=== PATIENT | female | born 1965 | race Two or more races ===

== ENCOUNTER 2025-05-08 07:26 | Inpatient (IN) | payer BC, OTHER ==
[~2025-05-08] VITALS: Ht 162.6 cm; Wt 87.7 kg
--- NOTE | 2025-05-08 07:45 | ED.PDOC ---
General HPI Comments This is a 59 year old female presenting to the ED with chief complaint of left flank pain. Patient reports that she has been experiencing intermittent left sided flank pain with associated radiation to her LLQ and hematuria for the past 2 weeks. Patient relays that she was seen at [facility] for the same complaint a week ago, having an US performed with results showing multiple stones to her left kidney, biggest being 5mm. Patient denies any dysuria, fever, chills, abdominal pain, chest pain, or SOB. She has no other complaints. Denies any other palliative provocative factors. Denies modifying factors. Denies radiation of symptoms. 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 MOLDING ENGINEER Hx Family History Family History: Reviewed,noncontributory to illness Social History Smoker: Non-Smoker Alcohol: Denies ETOH Use Drugs: Denies Drug Use Lives In: Home Constitutional: denies: chills, diaphoresis, fatigue, fever, malaise, sweats, weakness, others EENTM: denies: blurred vision, double vision, ear bleeding, ear discharge, ear drainage, ear pain, ear ringing, eye pain, eye redness, hearing loss, mouth pain, mouth swelling, nasal discharge, nose bleeding, nose congestion, nose pain, photophobia, tearing, throat pain, throat swelling, voice changes, others Respiratory: denies: cough, hemoptysis, orthopnea, SOB at rest, shortness of breath, SOB with excertion, stridor, wheezing, others Cardiovascular: denies: chest pain, dizzy spells, diaphoresis, Dyspnea on exertion, edema, irregular heart beat, left arm pain, lightheadedness, palpitations, PND, syncope, others Gastrointestinal: denies: abdomen distended, abdominal pain, blood streaked bowels, constipated, diarrhea, dysphagia, difficulty swallowing, hematemesis, melena, nausea, poor appetite, poor fluid intake, rectal bleeding, rectal pain, vomiting, others Genitourinary: reports: flank pain, hematuria; denies: abnormal vagina bleeding, burning, dyspareunia, dysuria, frequency, incontinence, pain, , vagina discharge, urgency, others Neurological: denies: dizziness, fainting, headache, left sided numbness, left sided weakness, numbness, paresthesia, pre-existing deficit, right sided numbness, right sided weakness, seizure, speech problems, tingling, tremors, weakness, others Musculoskeletal: denies: back pain, gout, joint pain, joint swelling, muscle pain, muscle stiffness, neck pain, others Integumetry: denies: bruises, change in color, change in hair/nails, dryness, laceration, lesions, lumps, rash, wounds, others Allergic/Immunocompromised: denies: Difficulty Healing, Frequent Infections, Hives, Itching, others Hematologic/Lymphatic: denies: anemia, blood clots, easy bleeding, easy bruising, swollen glands, others Endocrine: denies: excessive hunger, excessive sweating, excessive thirst, excessive urination, flushing, intolerance to cold, intolerance to heat, unexplained weight gain, unexplained weight loss, others Psychiatric: denies: anxiety, bipolar disorder, depression, hopeless, panic disorder, schizophrenia, sleepless, suicidal, others All Other Systems: Reviewed and Negative Physical Exam General Appearance: No Apparent Distress, Normal HEENT: Normal ENT Inspection, Pharynx Normal, TMs Normal Neck: Full Range of Motion, Normal Inspection Respiratory: Lungs Clear, No Accessory Muscle Use, No Respiratory Distress, Normal Breath Sounds Cardiovascular: No Murmur, No Gallop, Normal Peripheral Pulses, Regular Rate/Rhythm Breast Exam: Deferred Gastrointestinal: No Organomegaly, Normal Bowel Sounds, Soft, Other (Minimal left CVA tenderness with percussion) Genitalia: Deferred Pelvic: Deferred Rectal: Deferred Extremities: Normal inspection, Normal range of motion, Non-tender, No pedal edema Musculoskeletal : Apperance: Normal Neurologic: Alert, model maker scale II-XII nml as Tested, No Motor Deficits, Normal Affect, Normal Mood, No Sensory Deficits Cerebellar Function: NOT DONE Reflexes: NOT DONE Skin: Dry, Normal Color, Warm Lymphatic: No Adenopathy Was a procedure done? Was a procedure done?: No Differential Diagnosis Kidney stone (Female): Musculoskeletal pain, Pyelonephritis, Urolithiasis Urinary Problem (Female): UTI X-Ray, Labs, Meds, VS Vital Signs Date Time Temp Pulse Resp B/P (MAP) Pulse Ox O2 Delivery O2 Flow Rate FiO2 05/08/25 07:35 98.7 107 20 137/73 (94) 100 98.7 Lab Test 05/08/25 08:13 05/08/25 07:37 Range/Units White Blood Count Pending Red Blood Count Pending Hemoglobin Pending Hematocrit Pending Mean Corpuscular Volume Pending Mean Corpuscular Hemoglobin Pending Mean Corpuscular Hemoglobin Concent Pending Red Cell Distribution Width Pending Platelet Count Pending Mean Platelet Volume Pending Neutrophils (%) (Auto) Pending Lymphocytes (%) (Auto) Pending Monocytes (%) (Auto) Pending Basophils (%) (Auto) Pending Neutrophils # (Auto) Pending Lymphocytes # (Auto) Pending Monocytes # (Auto) Pending Sodium Level Pending Potassium Level Pending Chloride Level Pending Carbon Dioxide Level Pending Anion Gap Pending Blood Urea Nitrogen Pending Creatinine Pending Glomerular Filtration Rate Calc Pending BUN/Creatinine Ratio Pending Serum Glucose Pending Calcium Level Pending Total Bilirubin Pending Aspartate Amino Transferase (AST) Pending Alanine Aminotransferase (ALT) Pending Alkaline Phosphatase Pending Total Protein Pending Albumin Pending Urine Color Pending Urine Clarity Pending Urine pH Pending Urine Specific [place] Pending Urine Protein Pending Urine Ketones Pending Urine Blood Pending Urine Nitrite Pending Urine Bilirubin Pending Urine Urobilinogen Pending Urine Leukocyte Esterase Pending Urine RBC Pending Urine Microscopic WBC Pending Urine Squamous Epithelial Cells Pending Urine Bacteria Pending Urine Glucose Pending [place] [id number] Ph: [phone] DIAGNOSTIC IMAGING Diagnostic Imaging Report : [id number] Signed PATIENT: QUENTIN RENE ACCT: [id number] UNIT: [id number] : 1965 LOC: ER ROOM / BED: / AGE / SEX: 59 / F ADM STATUS: REG ER SERVICE [id number] ORDERING PHYSICIAN: KAREN SALGADO MD PROCEDURE(s): ABPL - CT AB PEL WO CON-NO ORAL OR IV REASON: LEFT flank pain, hx of stones ORDER NUMBER(s): [id number], ACCESSION NUMBER(s): [id number] Exam: CT CT AB PEL WO CON-NO ORAL OR IV History: LEFT flank pain, hx of stones Comparison Study: None Technique: Multidetector spiral CT of the abdomen and pelvis was performed from lung bases to pubic symphysis. Imaging was performed without intravenous contrast. Coronal and sagittal multiplanar reformats were obtained from the axial data set by the technologist. Radiation Dose : 1. Abdomen/Pelvis: CTDIvol 17.7 mGy, DLP 45.6 mGy*cm. Findings: Evaluation of vasculature and solid organs is limited due to lack of intravenous contrast use. Lung Bases: Lung bases are clear. Visualized portions of the heart and pericardium are unremarkable. Liver: The liver is enlarged measuring 21.2 cm. Diffusely hypoattenuating liver parenchyma consistent with hepatic steatosis. Gallbladder and Biliary Tree: The gallbladder is surgically absent. No intrahepatic biliary ductal dilatation. 5 mm density in the region of the cystic duct may reflect calcification or stone. Common bile duct is mildly prominent measuring 8 mm. Spleen: Unremarkable Pancreas: The pancreas is grossly unremarkable. Adrenal Glands: Unremarkable Kidneys: There is mild left hydroureteronephrosis due to 8 mm calculus in the proximal left ureter. Additional nonobstructive calculus in the lower pole of the left kidney measuring 5 mm. Left perinephric fat stranding. GI tract: The stomach is grossly normal in appearance. No evidence of small bowel wall thickening or abnormal dilatation to suggest bowel obstruction. The colon is unremarkable. The appendix is not visualized, however no inflammatory changes in the right lower quadrant to suggest acute appendicitis. Peritoneum/mesentery/retroperitoneum. No evidence of free intraperitoneal air. No ascites. No evidence of suspicious lymphadenopathy. Abdominal Wall: Unremarkable. Vasculature: The visualized abdominal aorta is normal in size and caliber. Evaluation of abdominal and pelvic vessels is limited due to lack of intravenous contrast. Urinary Bladder: Grossly unremarkable for degree of distention. Pelvic Organs: Unremarkable Musculoskeletal: No aggressive focal bony lesions, acute fractures or dislocation. Intervertebral disc space narrowing at L5-S1. IMPRESSION: 1. Left hydronephrosis with 8 mm calculus in the proximal left ureter. Additional nonobstructive left intrarenal calculus. 2. Hepatic steatosis and hepatomegaly. ATED BY: JUSTINE OLIVA MD DICTATED DATE/TIME: 05/08/25810 SIGNED BY: JUSTINE OLIVA MD SIGNED DATE/TIME: 05/08/25810 CC: X-Ray, Labs, Meds, VS Comment This 59-year-old female presents secondary to left flank pain. She is noted to have a 8 mm obstructing kidney stone with hydronephrosis. She endorses currently being on Flomax now she had prescribed at [facility]. Here, she had provided IV hydration and an additional dose of Flomax. As she is on medical treatment continues to have an obstructing stone, she will be admitted for further workup management by the hospitalist service and Urology. Images Reviewed?: Images reviewed and evaluated by me Time of 1ST Reevaluation: 08:41 Reevaluation 1ST: Unchanged Patient Education/Counseling: Diagnosis, Treatment Family Education/Counseling: No Family Present SEPSIS Sepsis Screen Date sepsis recognized/suspect: May 08, 2025 Time Sepsis recognized/suspect: 07 Recent Procedure: No On Antibiotic Therapy: No Respiratory Rate >20: No Heart Rate >90: Yes Temp<36 C (96.8 F) or >38.3 C: No SBP <90 or MAP <65 mmHG: No New Acute Mental Status Change: No Is the patient on CPAP, BIPAP,: No Physician Orders Complete Blood Count (05/08/25 07:37) Comprehensive Metabolic Panel (05/08/25 07:37) Urinalysis (05/08/25 07:37) Ct Ab Pel Wo Con-No Oral Or Iv (05/08/25 07:37) D5w/Sod Chlo 0.9% Ns (05/08/25 08:30) Vital Signs Date Time Temp Pulse Resp B/P (MAP) Pulse Ox O2 Delivery O2 Flow Rate FiO2 05/08/25 07:35 98.7 107 20 137/73 (94) 100 98.7 Laboratory Tests Test 05/08/25 08:13 White Blood Count Pending Departure 1 Departure Time of Disposition: 08:26 Impression: Primary Impression: Flank pain Additional Impression: Urinary tract obstruction by kidney stone Disposition: ADMITTED INPATIENT Admit to: Med Surg Condition: Fair Critical Care Note Critical Care Time?: No Stability Stability form required: No Heart Score Heart Score: Heart Score Response (Comments) Value History N/A 0 EKG N/A 0 Age N/A 0 Risk Factors N/A 0 Troponin N/A 0 Total 0 I personally scribed for KAREN SALGADO MD ([email or web address]) on 05/08/25 at 07:45. Electronically submitted by Sung Chiang ([email or web address]). I personally scribed for KAREN SALGADO MD ([email or web address]) on 05/08/25 at 08:23. Electronically submitted by Sung Chiang ([email or web address]). KAREN SALGADO MD May 08, 2025 07:45
--- NOTE | 2025-05-08 08:13 | DVH ---
Exam: CT CT AB PEL WO CON-NO ORAL OR IV History: LEFT flank pain, hx of stones Comparison Study: None Technique: Multidetector spiral CT of the abdomen and pelvis was performed from lung bases to pubic s ymphysis. Imaging was performed without intravenous contrast. Coronal and sagittal multiplanar reform ats were obtained from the axial data set by the technologist. Radiation Dose : 1. Abdomen/Pelvis: CTDIvol 17.7 mGy, DLP 45.6 mGy*cm. Findings: Evaluation of vasculature and solid organs is limited due to lack of intravenous contrast use. Lung Bases: Lung bases are clear. Visualized portions of the heart and pericardium are unremarkable. Liver: The liver is enlarged measuring 21.2 cm. Diffusely hypoattenuating liver parenchyma consisten t with hepatic steatosis. Gallbladder and Biliary Tree: The gallbladder is surgically absent. No intrahepatic biliary ductal di latation. 5 mm density in the region of the cystic duct may reflect calcification or stone. Common b ile duct is mildly prominent measuring 8 mm. Spleen: Unremarkable Pancreas: The pancreas is grossly unremarkable. Adrenal Glands: Unremarkable Kidneys: There is mild left hydroureteronephrosis due to 8 mm calculus in the proximal left ureter. A dditional nonobstructive calculus in the lower pole of the left kidney measuring 5 mm. Left perinephr ic fat stranding. GI tract: The stomach is grossly normal in appearance. No evidence of small bowel wall thickening or abnormal dilatation to suggest bowel obstruction. The colon is unremarkable. The appendix is not visu alized, however no inflammatory changes in the right lower quadrant to suggest acute appendicitis. Peritoneum/mesentery/retroperitoneum. No evidence of free intraperitoneal air. No ascites. No evidenc e of suspicious lymphadenopathy. Abdominal Wall: Unremarkable. Vasculature: The visualized abdominal aorta is normal in size and caliber. Evaluation of abdominal a nd pelvic vessels is limited due to lack of intravenous contrast. Urinary Bladder: Grossly unremarkable for degree of distention. Pelvic Organs: Unremarkable Musculoskeletal: No aggressive focal bony lesions, acute fractures or dislocation. Intervertebral dis c space narrowing at L5-S1. IMPRESSION: 1. Left hydronephrosis with 8 mm calculus in the proximal left ureter. Additional nonobstructive lef t intrarenal calculus. 2. Hepatic steatosis and hepatomegaly.
[2025-05-08 08:36] LABS: Hematocrit 40.6 % (36.0-46.0); Hemoglobin 14.1 g/dL (12.2-16.2); Mean Corpuscular Hemoglobin 30.1 pg (28.0-32.0); Mean Corpuscular Volume 86.9 fL (80.0-100.0); Nucleated Red Blood Cells % 0.1 %
[2025-05-08 08:39] LABS: Urine Protein, UAD TRACE (Negative)
[2025-05-08] MEDS: D5W/SOD CHLO 0.9% 1,000 ML IV ONE (08:46)
[2025-05-08] MEDS: SODIUM CHLORIDE 0.9% 1,000 ML IV ONE (08:54)
[2025-05-08 08:56] VITALS: PULSE 84; RESP 16; O2SAT 96
[2025-05-08 09:01] LABS: Alanine Aminotransferase 14 U/L (7-40); Albumin 4.3 g/dL (3.2-4.8); Alkaline Phosphatase 76 U/L (46-116); Anion Gap 9 (5-15); BUN/Creatinine Ratio 11.1 (10.0-20.0); Bilirubin, Total 0.8 mg/dL (0.2-1.0); Blood Urea Nitrogen 17 mg/dL (9-23); Calcium 9.8 mg/dL (8.7-10.4); Carbon Dioxide 24 mmol/L (20-31); Chloride 102 mmol/L (98-107); Glucose 129 mg/dL (74-106); Potassium 3.9 mmol/L (3.5-5.1); Sodium 135 mmol/L (136-145); Total Protein 7.4 g/dL (5.7-8.2)
[2025-05-08] MEDS ORDERED: ACETAMINOPHEN 325 MG TAB PO PRN (10:00)
[2025-05-08] MEDS ORDERED: PREG50CA80 PO (10:27)
[2025-05-08] MEDS ORDERED: ROPI2TAB47 PO (10:27)
[2025-05-08] MEDS ORDERED: PANT40T PO (10:27)
[2025-05-08] MEDS ORDERED: TAMS0.4C39 PO (10:27)
[2025-05-08] MEDS ORDERED: ATOR40TA52 PO (10:27)
[2025-05-08] MEDS ORDERED: LEVO100T8 PO (10:27)
--- NOTE | 2025-05-08 10:40 | DVHHP2 ---
History of Present Illness Reason for Visit: Left flank pain History of Present Illness Jazmin Ulloa is a 59-year-old female with past medical history of nephrolithiasis, cholecystectomy, and hysterectomy who presents to the ED with left flank pain that began 2 weeks ago with hematuria. Patient reports that there is currently no hematuria upon examination. She does state that her pain is 10/10 feels like "pain" and is constant. Patient states that [place] makes it better sometimes. She denies any recent trauma or injury, recent sick contacts, recent travels, recent ingestion of spoiled food, abdominal pain, nausea, vomiting, diarrhea, urinary symptoms, chest pain, shortness of breath, lightheadedness, weakness, or dizziness. Past Medical History Nephrolithiasis Past Surgical History: Cholecystectomy, Hysterectomy Family History: Cancer, Other (Dad with kidney stones and rheumatoid arthritis. Mom with heart stents, AFib, and breast cancer.) Smoke: No ALCOHOL: none Drugs: None Lives: with Family Domestic Violence: Neg Review of Systems Musculoskeletal: other (Left flank pain) Allergies: Uncoded Allergies: SULFA (Allergy, Unknown, 05/08/25) Medications Current Medications Medications Dose Ordered Sig/Yolanda Route Start Time Stop Time Status Last Admin Dose Admin Ceftriaxone Sodium 50 ml @ 100 mls/hr DAILY@09 IV 05/08/25 10:00 Sodium Chloride 1,000 ml @ 120 mls/hr Q8H20M IV 05/08/25 10:00 Acetaminophen/ Hydrocodone Bitart 1 tab Q4HP PRN PO 05/08/25 10:00 Ondansetron HCl 4 mg Q4HP PRN IV 05/08/25 10:00 Acetaminophen 650 mg Q6HP PRN PO 05/08/25 10:00 Morphine Sulfate 2 mg Q4HPRN PRN IV 05/08/25 10:00 Exam Vital Signs Vital Signs Date Time Temp Pulse Resp B/P (MAP) Pulse Ox O2 Delivery O2 Flow Rate FiO2 05/08/25 10:00 Room Air* 0 21 05/08/25 08:56 84 16 96 05/08/25 07:35 98.7 137/73 (94) 98.7 General Appearance: Alert, Oriented X3, Cooperative, No acute distress HEENT: Atraumatic, PERRLA, EOMI, Mucous membr. moist/pink Respiratory: Clear to auscultation, Normal air movement Cardiovascular: Normal S1, Normal S2, No murmurs Abdominal: Normal bowel sounds, Soft, No tenderness, No hepatospenomegaly, No masses Extremities: No clubbing, No cyanosis, No edema, Normal pulses, No tenderness/swelling Skin: No significant lesion Neuro: Normal gait, Normal speech, Strength at 5/5 X4 ext, Normal tone, Sensation intact Psych/Mental Status: Mental status NL, Mood NL Labs/Xrays Labs Test 05/08/25 08:13 05/08/25 07:37 Range/Units White Blood Count 11.8 H 4.4-10.8 10^3/uL Red Blood Count 4.68 4.0-5.20 10^6/uL Hemoglobin 14.1 12.2-16.2 g/dL Hematocrit 40.6 36.0-46.0 % Mean Corpuscular Volume 86.9 80.0-100.0 fL Mean Corpuscular Hemoglobin 30.1 28.0-32.0 pg Mean Corpuscular Hemoglobin Concent 34.6 32.0-36.0 g/dL Red Cell Distribution Width 13.6 11.8-14.3 % Platelet Count 192 140-450 10^3/uL Mean Platelet Volume 7.9 6.9-10.8 fL Neutrophils (%) (Auto) 75.6 37.0-80.0 % Lymphocytes (%) (Auto) 12.8 10.0-50.0 % Monocytes (%) (Auto) 9.9 0.0-12.0 % Eosinophils (%) (Auto) 0.9 0.0-7.0 % Basophils (%) (Auto) 0.8 0.0-2.0 % Neutrophils # (Auto) 8.9 H 1.6-8.6 10 ^3/uL Lymphocytes # (Auto) 1.5 0.4-5.4 10 ^3/uL Monocytes # (Auto) 1.2 0-1.3 10 ^3/uL Eosinophils # (Auto) 0.1 0-0.8 10 ^3/uL Basophils # (Auto) 0.1 0-0.2 10 ^3/uL Nucleated Red Blood Cells 0.1 % Sodium Level 135 L 136-145 mmol/L Potassium Level 3.9 3.5-5.1 mmol/L Chloride Level 102 98-107 mmol/L Carbon Dioxide Level 24 20-31 mmol/L Anion Gap 9 5-15 Blood Urea Nitrogen 17 9-23 mg/dL Creatinine 1.53 H 0.550-1.02 mg/dL Glomerular Filtration Rate Calc 39 >90 mL/min BUN/Creatinine Ratio 11.1 10.0-20.0 Serum Glucose 129 H 74-106 mg/dL Calcium Level 9.8 8.7-10.4 mg/dL Total Bilirubin 0.8 0.2-1.0 mg/dL Aspartate Amino Transferase (AST) 17 13-40 U/L Alanine Aminotransferase (ALT) 14 7-40 U/L Alkaline Phosphatase 76 46-116 U/L Total Protein 7.4 5.7-8.2 g/dL Albumin 4.3 3.2-4.8 g/dL Urine Color Yellow Yellow Urine Clarity Turbid H Clear Urine pH 6.0 5.0-9.0 Urine Specific [place] 1.025 1.001-1.035 Urine Protein Trace H Negative Urine Ketones Negative Negative Urine Blood Negative Negative /uL Urine Nitrite Negative Negative Urine Bilirubin Negative Negative Urine Urobilinogen Normal Negative mg/dL Urine Leukocyte Esterase 1+ Negative /uL Urine RBC 2 0 - 4 /hpf Urine Microscopic WBC 2 0-5 /HPF Urine Squamous Epithelial Cells Few <5 /hpf Urine Bacteria None seen None Seen /hpf Urine Glucose Normal Normal mg/dL Exam: CT CT AB PEL WO CON-NO ORAL OR IV History: LEFT flank pain, hx of stones Comparison Study: None Technique: Multidetector spiral CT of the abdomen and pelvis was performed from lung bases to pubic symphysis. Imaging was performed without intravenous contrast. Coronal and sagittal multiplanar reformats were obtained from the axial data set by the technologist. Radiation Dose : 1. Abdomen/Pelvis: CTDIvol 17.7 mGy, DLP 45.6 mGy*cm. Findings: Evaluation of vasculature and solid organs is limited due to lack of intravenous contrast use. Lung Bases: Lung bases are clear. Visualized portions of the heart and pericardium are unremarkable. Liver: The liver is enlarged measuring 21.2 cm. Diffusely hypoattenuating liver parenchyma consistent with hepatic steatosis. Gallbladder and Biliary Tree: The gallbladder is surgically absent. No intrahepatic biliary ductal dilatation. 5 mm density in the region of the cystic duct may reflect calcification or stone. Common bile duct is mildly prominent measuring 8 mm. Spleen: Unremarkable Pancreas: The pancreas is grossly unremarkable. Adrenal Glands: Unremarkable Kidneys: There is mild left hydroureteronephrosis due to 8 mm calculus in the proximal left ureter. Additional nonobstructive calculus in the lower pole of the left kidney measuring 5 mm. Left perinephric fat stranding. GI tract: The stomach is grossly normal in appearance. No evidence of small bowel wall thickening or abnormal dilatation to suggest bowel obstruction. The colon is unremarkable. The appendix is not visualized, however no inflammatory changes in the right lower quadrant to suggest acute appendicitis. Peritoneum/mesentery/retroperitoneum. No evidence of free intraperitoneal air. No ascites. No evidence of suspicious lymphadenopathy. Abdominal Wall: Unremarkable. Vasculature: The visualized abdominal aorta is normal in size and caliber. Evaluation of abdominal and pelvic vessels is limited due to lack of intravenous contrast. Urinary Bladder: Grossly unremarkable for degree of distention. Pelvic Organs: Unremarkable Musculoskeletal: No aggressive focal bony lesions, acute fractures or dislocation. Intervertebral disc space narrowing at L5-S1. IMPRESSION: 1. Left hydronephrosis with 8 mm calculus in the proximal left ureter. Add itional nonobstructive left intrarenal calculus. 2. Hepatic steatosis and hepatomegaly. SEPSIS Sepsis Screen Date sepsis recognized/suspect: May 08, 2025 Time Sepsis recognized/suspect: 0739 Recent Procedure: No On Antibiotic Therapy: No Respiratory Rate >20: No Heart Rate >90: Yes Temp<36 C (96.8 F) or >38.3 C: No SBP <90 or MAP <65 mmHG: No New Acute Mental Status Change: No Is the patient on CPAP, BIPAP,: No Physician Orders Ct Ab Pel Wo Con-No Oral Or Iv (05/08/25 07:37) D5w/Sod Chlo 0.9% (D5w Ns 0.9%) (05/08/25 08:30) Ceftriaxone 1gm/50ml D5w (Rocephin) (05/08/25 10:00) Admit (05/08/25 09:53) Allergies (05/08/25 09:53) Code Status (05/08/25 09:53) Sodium Chloride 0.9% (05/08/25 10:00) Hydrocodone-Acet 5/325mg Tab ([place] 5/32 (05/08/25 10:00) Ondansetron Hcl (Zofran) (05/08/25 10:00) Complete Blood Count (05/09/25 04:00) Comprehensive Metabolic Panel (05/09/25 04:00) Cardiac Diet-2gna,Lofat,Lochol (05/08/25 Lunch) Acetaminophen Tablet (Tylenol Tablet) (05/08/25 10:00) Morphine Sulfate Injection (05/08/25 10:00) * Urology Consult (05/08/25 10:24) Levothyroxine Tablet (Synthroid Tablet) (05/09/25 10:00) Pantoprazole Tablet (Protonix Tablet) (05/08/25 22:00) Tamsulosin Hydrochloride (Flomax) (05/09/25 10:00) (Nf) Atorvastatin Calcium (05/09/25 10:00) Pregabalin Capsule (Lyrica Capsule) (05/08/25 22:00) Vital Signs Date Time Temp Pulse Resp B/P (MAP) Pulse Ox O2 Delivery O2 Flow Rate FiO2 05/08/25 10:00 Room Air* 0 21 05/08/25 08:56 84 16 96 Room Air* 0 21 05/08/25 07:35 98.7 107 20 137/73 (94) 100 98.7 Laboratory Tests Test 05/08/25 08:13 White Blood Count 11.8 10^3/uL (4.4-10.8) H Medications Medications Dose Ordered Sig/Yolanda Route Start Time Stop Time Status Last Admin Dose Admin Sodium Chloride 1,000 ml @ 1,000 mls/hr Q1H ONCE IV 05/08/25 09:00 05/08/25 09:59 DC 05/08/25 08:54 1,000 MLS/HR Assessment/Plan Assessment/Plan Assessment Intractable left flank pain likely due to left hydronephrosis with 8 mm calculus in the proximal left ureter Nonobstructive left intrarenal calculus Hepatic steatosis and hepatomegaly Leukocytosis likely due to UTI MAUDE likely due to calculus Obesity History of nephrolithiasis History of cholecystectomy History of hysterectomy Plan Admit to med surge Antiemetics Pain management Flomax UA noted NS 1 L given in ED CT abdomen and pelvis noted IV antibiotics-ceftriaxone IV fluids Diet Home medications reconciled DVT prophylaxis-not indicated patient ambulating PUD prophylaxis-not indicated no history of GERD or GI bleed Discussed plan of care with patient and nurse Urology consult Counseled patient on lifestyle modifications, diet, and exercise 17000 Preventive counseling healthy eating habits, physical activity, and regular checkups Plan discussed with: Patient My Orders Orders - SUNG NGUYEN Procedure Category Date Status Time Ceftriaxone 1gm/50ml PHA 05/08/25 In Process D5w (Rocephin) 10:00 Admit ADMIT 05/08/25 Transmitted 09:53 Allergies PRICE 05/08/25 In Process 09:53 Code Status CODE 05/08/25 Transmitted 09:53 Sodium Chloride 0.9% PHA 05/08/25 In Process 10:00 Hydrocodone-Acet PHA 05/08/25 In Process 5/325mg Tab ([place] 10:00 Ondansetron Hcl PHA 05/08/25 In Process (Zofran) 10:00 Complete Blood Count LAB 05/09/25 Verified 04:00 Comprehensive LAB 05/09/25 Verified Metabolic Panel 04:00 Cardiac DIET 05/08/25 Transmitted Diet-2gna,Lofat,Lochol Lunch Acetaminophen Tablet PHA 05/08/25 In Process (Tylenol Tablet) 10:00 Morphine Sulfate PHA 05/08/25 In Process Injection 10:00 * Urology Consult CONS 05/08/25 Transmitted 10:24 Levothyroxine Tablet PHA 05/09/25 Transmitted (Synthroid Tablet) 10:00 Pantoprazole Tablet PHA 05/08/25 Transmitted (Protonix Tablet) 22:00 Tamsulosin PHA 05/09/25 Verified Hydrochloride (Flomax) 10:00 (Nf) Atorvastatin PHA 05/09/25 Verified Calcium 10:00 Pregabalin Capsule PHA 05/08/25 Verified (Lyrica Capsule) 22:00 Date of Service: May 08, 2025 Billing Provider: SUNG NGUYEN Common Visit Codes: [id number] INP/OBS CARE (HIGH) Secondary Visit Codes: [id number] COUNSELING IND SUNG NGUYEN May 08, 2025 10:40
[2025-05-08] MEDS: SODIUM CHLORIDE 0.9% 1,000 ML IV SCH (11:07)
[2025-05-08] MEDS: cefTRIAXone 1GM/50ML D5W 50 ML IV SCH (11:07)
[2025-05-08 11:32] LABS: INR 1.08 (0.9-1.15); Prothrombin Time 11.4 sec (9.3-11.8)
--- NOTE | 2025-05-08 11:40 | DVHINCON2 ---
Date of service: May 08, 2025 Referring Physician hospitalist Reason for Consultation obstructive uropathy History of Present Illness History Source: Patient, RN Notes, MD Notes, Old Records Exam Limitations: No limitations HPI 59 yo female with left flank pain 10/ that reports hematuria 2 weeks ago. She was seen at [facility] for same complaint and was d/c home. CT shows proximal left 8 mm stone with moderate hydro. she took norco from her home meds and has not had much relief of pain at this time. no fevers no n/v/d. Home Meds Reported Medications Pantoprazole Sodium Sesquihydr (Pantoprazole Sodium) 40 Mg Tab, 1 TAB PO BID 05/08/25 Levothyroxine Sodium (Levothyroxine Sodium) 100 Mcg Tab, 1 TAB PO DAILY 05/08/25 Pregabalin (Pregabalin) 50 Mg Cap, CAP PO 05/08/25 Ropinirole Hydrochloride (Ropinirole Hydrochloride) 2 Mg Tab, 1 TAB PO 05/08/25 Tamsulosin Hcl (Tamsulosin Hcl) 0.4 Mg Cap, CAP PO 05/08/25 Atorvastatin Calcium (ATORVASTATIN CALCIUM) 40 Mg Tab, 1 TAB PO DAILY 05/08/25 Review of Systems Genitourinary: Pain H&P Exam Vital Signs Vital Signs Date Time Temp Pulse Resp B/P (MAP) Pulse Ox O2 Delivery O2 Flow Rate FiO2 05/08/25 10:00 Room Air* 0 21 05/08/25 08:56 84 16 96 05/08/25 07:35 98.7 137/73 (94) 98.7 General Appeara: Well developed, Well nourished, Normal Appearance, Mild distress, Obese Neuro/Mental St: Alert, Oriented Appearance: Appropriate appearance, Appropriate insight Eye contact/ Speech: Cooperative, Good eye contact, Normal speech Skin Exam: Normal inspection, Normal color, Warm/dry Labs/Xrays [address] [address] Ph: [phone] DIAGNOSTIC IMAGING Diagnostic Imaging Report : [id number] Signed PATIENT: QUENTIN RENE ACCT: [id number] UNIT: [id number] : 1965 LOC: ER ROOM / BED: / AGE / SEX: 59 / F ADM STATUS: REG ER SERVICE 0737 ORDERING PHYSICIAN: KAREN SALGADO MD PROCEDURE(s): ABPL - CT AB PEL WO CON-NO ORAL OR IV REASON: LEFT flank pain, hx of stones ORDER NUMBER(s): [id number], ACCESSION NUMBER(s): [id number] Exam: CT CT AB PEL WO CON-NO ORAL OR IV History: LEFT flank pain, hx of stones Comparison Study: None Technique: Multidetector spiral CT of the abdomen and pelvis was performed from lung bases to pubic symphysis. Imaging was performed without intravenous contrast. Coronal and sagittal multiplanar reformats were obtained from the axial data set by the technologist. Radiation Dose : 1. Abdomen/Pelvis: CTDIvol 17.7 mGy, DLP 45.6 mGy*cm. Findings: Evaluation of vasculature and solid organs is limited due to lack of intravenous contrast use. Lung Bases: Lung bases are clear. Visualized portions of the heart and pericardium are unremarkable. Liver: The liver is enlarged measuring 21.2 cm. Diffusely hypoattenuating liver parenchyma consistent with hepatic steatosis. Gallbladder and Biliary Tree: The gallbladder is surgically absent. No intrahepatic biliary ductal dilatation. 5 mm density in the region of the cystic duct may reflect calcification or stone. Common bile duct is mildly prominent measuring 8 mm. Spleen: Unremarkable Pancreas: The pancreas is grossly unremarkable. Adrenal Glands: Unremarkable Kidneys: There is mild left hydroureteronephrosis due to 8 mm calculus in the proximal left ureter. Additional nonobstructive calculus in the lower pole of the left kidney measuring 5 mm. Left perinephric fat stranding. GI tract: The stomach is grossly normal in appearance. No evidence of small bowel wall thickening or abnormal dilatation to suggest bowel obstruction. The colon is unremarkable. The appendix is not visualized, however no inflammatory changes in the right lower quadrant to suggest acute appendicitis. Peritoneum/mesentery/retroperitoneum. No evidence of free intraperitoneal air. No ascites. No evidence of suspicious lymphadenopathy. Abdominal Wall: Unremarkable. Vasculature: The visualized abdominal aorta is normal in size and caliber. Evaluation of abdominal and pelvic vessels is limited due to lack of intravenous contrast. Urinary Bladder: Grossly unremarkable for degree of distention. Pelvic Organs: Unremarkable Musculoskeletal: No aggressive focal bony lesions, acute fractures or dislocation. Intervertebral disc space narrowing at L5-S1. IMPRESSION: 1. Left hydronephrosis with 8 mm calculus in the proximal left ureter. Additional nonobstructive left intrarenal calculus. 2. Hepatic steatosis and hepatomegaly. ATED BY: JUSTINE OLIVA MD DICTATED DATE/TIME: 05/08/25 08 SIGNED BY: JUSTINE OLIVA MD SIGNED DATE/TIME: 05/08/25810 CC: Labs Test 05/08/25 08:13 05/08/25 07:37 Range/Units White Blood Count 11.8 H 4.4-10.8 10^3/uL Red Blood Count 4.68 4.0-5.20 10^6/uL Hemoglobin 14.1 12.2-16.2 g/dL Hematocrit 40.6 36.0-46.0 % Mean Corpuscular Volume 86.9 80.0-100.0 fL Mean Corpuscular Hemoglobin 30.1 28.0-32.0 pg Mean Corpuscular Hemoglobin Concent 34.6 32.0-36.0 g/dL Red Cell Distribution Width 13.6 11.8-14.3 % Platelet Count 192 140-450 10^3/uL Mean Platelet Volume 7.9 6.9-10.8 fL Neutrophils (%) (Auto) 75.6 37.0-80.0 % Lymphocytes (%) (Auto) 12.8 10.0-50.0 % Monocytes (%) (Auto) 9.9 0.0-12.0 % Eosinophils (%) (Auto) 0.9 0.0-7.0 % Basophils (%) (Auto) 0.8 0.0-2.0 % Neutrophils # (Auto) 8.9 H 1.6-8.6 10 ^3/uL Lymphocytes # (Auto) 1.5 0.4-5.4 10 ^3/uL Monocytes # (Auto) 1.2 0-1.3 10 ^3/uL Eosinophils # (Auto) 0.1 0-0.8 10 ^3/uL Basophils # (Auto) 0.1 0-0.2 10 ^3/uL Nucleated Red Blood Cells 0.1 % Sodium Level 135 L 136-145 mmol/L Potassium Level 3.9 3.5-5.1 mmol/L Chloride Level 102 98-107 mmol/L Carbon Dioxide Level 24 20-31 mmol/L Anion Gap 9 5-15 Blood Urea Nitrogen 17 9-23 mg/dL Creatinine 1.53 H 0.550-1.02 mg/dL Glomerular Filtration Rate Calc 39 >90 mL/min BUN/Creatinine Ratio 11.1 10.0-20.0 Serum Glucose 129 H 74-106 mg/dL Calcium Level 9.8 8.7-10.4 mg/dL Total Bilirubin 0.8 0.2-1.0 mg/dL Aspartate Amino Transferase (AST) 17 13-40 U/L Alanine Aminotransferase (ALT) 14 7-40 U/L Alkaline Phosphatase 76 46-116 U/L Total Protein 7.4 5.7-8.2 g/dL Albumin 4.3 3.2-4.8 g/dL Urine Color Yellow Yellow Urine Clarity Turbid H Clear Urine pH 6.0 5.0-9.0 Urine Specific [place] 1.025 1.001-1.035 Urine Protein Trace H Negative Urine Ketones Negative Negative Urine Blood Negative Negative /uL Urine Nitrite Negative Negative Urine Bilirubin Negative Negative Urine Urobilinogen Normal Negative mg/dL Urine Leukocyte Esterase 1+ Negative /uL Urine RBC 2 0 - 4 /hpf Urine Microscopic WBC 2 0-5 /HPF Urine Squamous Epithelial Cells Few <5 /hpf Urine Bacteria None seen None Seen /hpf Urine Glucose Normal Normal mg/dL Assessment/Plan Problem List: (1) Flank pain (2) Urinary tract obstruction by kidney stone Plan pain control IR consult for left PCN placement saturday. lithotripsy TBA Plan discussed with: Patient, Spouse, Other GRACIELA MCQUEEN NP May 08, 2025 11:40
[2025-05-08 12:21] VITALS: PULSE 86; RESP 18; O2SAT 98
[2025-05-08 12:30] VITALS: BP 129/69; PULSE 86; RESP 16; TEMP 98; O2SAT 98
[2025-05-08] MEDS: HYDROcodone-ACET 5/325MG TAB PO PRN (13:52)
[2025-05-08 16:32] VITALS: BP 134/64; PULSE 86; RESP 16; TEMP 98.8; O2SAT 98
[2025-05-08] MEDS: ROPINIROLE 2 MG TABLET PO PRN (16:49)
[2025-05-08] MEDS: ONDANSETRON HCL 4 MG/2 ML VIAL IV PRN (17:24)
[2025-05-08 21:00] VITALS: BP 142/68; PULSE 78; TEMP 97.9; O2SAT 98
[2025-05-08] MEDS: MORPHINE SULFATE INJ 2 MG/ml SYRG IV PRN (21:28)
[2025-05-08] MEDS ORDERED: PREGABALIN 25 MG CAP PO SCH (22:00)
[2025-05-08] MEDS: ATORVASTATIN 20 MG TAB PO SCH (23:13)
[2025-05-08] MEDS: PANTOPRAZOLE 40 MG TAB PO SCH (23:13)
[2025-05-08 23:28] VITALS: BP 149/75; PULSE 82; RESP 18; TEMP 98.4; O2SAT 100
[2025-05-09] VITALS (8 sets, daily range): BP systolic 138–154; BP diastolic 75–91; PULSE 82–89; RESP 17–19; TEMP 97.7–98.7; O2SAT 94–100
[2025-05-09 06:30] LABS: Hematocrit 38.4 % (36.0-46.0); Hemoglobin 13.3 g/dL (12.2-16.2); Mean Corpuscular Hemoglobin 30.0 pg (28.0-32.0); Mean Corpuscular Volume 86.6 fL (80.0-100.0); Nucleated Red Blood Cells % 0.1 %
[2025-05-09 06:52] LABS: Alanine Aminotransferase 12 U/L (7-40); Albumin 3.9 g/dL (3.2-4.8); Alkaline Phosphatase 69 U/L (46-116); Anion Gap 8 (5-15); BUN/Creatinine Ratio 9.4 (10.0-20.0); Bilirubin, Total 0.8 mg/dL (0.2-1.0); Blood Urea Nitrogen 13 mg/dL (9-23); Calcium 9.3 mg/dL (8.7-10.4); Carbon Dioxide 26 mmol/L (20-31); Chloride 104 mmol/L (98-107); Glucose 103 mg/dL (74-106); Potassium 3.9 mmol/L (3.5-5.1); Sodium 138 mmol/L (136-145); Total Protein 6.8 g/dL (5.7-8.2)
[2025-05-09] MEDS: TAMSULOSIN HYDROCHLORIDE 0.4 MG CAP PO SCH (10:08)
[2025-05-09] MEDS: LEVOTHYROXINE SODIUM 100 MCG TAB PO SCH (10:08)
--- NOTE | 2025-05-09 11:26 | DVHPN2 ---
Progress Note - Dictate Date Seen: May 09, 2025 Medical Necessity Reason Pt with a Central, PICC or Fol: No Subjective nauseated vital signs Vital Sign Date Time Temp Pulse Resp B/P (MAP) Pulse Ox O2 Delivery O2 Flow Rate FiO2 05/09/25 09:00 98.7 84 18 143/84 (103) 96 98.7 05/09/25 08:00 Room Air* 0 21 Total Intake and Output 05/08/25 05/08/25 05/09/25 15:00 23:00 07:00 Intake Total 1650 ml 480 ml 1200 ml Balance 1650 ml 480 ml 1200 ml medications Current Medications Medications Dose Ordered Sig/Yolanda Route Start Time Stop Time Status Last Admin Dose Admin Ceftriaxone Sodium 50 ml @ 100 mls/hr DAILY@09 IV 05/08/25 10:00 05/09/25 10:10 100 MLS/HR Sodium Chloride 1,000 ml @ 120 mls/hr Q8H20M IV 05/08/25 10:00 05/08/25 18:04 120 MLS/HR Acetaminophen/ Hydrocodone Bitart 1 tab Q4HP PRN PO 05/08/25 10:00 05/09/25 10:09 1 TAB Ondansetron HCl 4 mg Q4HP PRN IV 05/08/25 10:00 05/08/25 21:26 4 MG Acetaminophen 650 mg Q6HP PRN PO 05/08/25 10:00 Morphine Sulfate 2 mg Q4HPRN PRN IV 05/08/25 10:00 05/08/25 21:28 2 MG Levothyroxine Sodium 100 mcg DAILY PO 05/09/25 10:00 05/09/25 10:08 100 MCG Pantoprazole Sodium 40 mg BID PO 05/08/25 22:00 05/09/25 10:09 40 MG Tamsulosin HCl 0.4 mg DAILY PO 05/09/25 10:00 05/09/25 10:08 0.4 MG Atorvastatin Calcium 40 mg HS PO 05/08/25 22:00 05/08/25 23:13 40 MG Pregabalin 50 mg BID PO 05/08/25 22:00 Hold Patient Own Medication 1 DAILY PRN PO 05/08/25 16:45 05/08/25 16:49 1 objective sitting up in chair at bedside tolerating fluids laboratory and microbiology Laboratory Tests 05/09/25 05:12 Test 05/09/25 05:12 Range/Units Serum Glucose 103 74-106 mg/dL Assessment/Plan IR for PCN placement tomorrow lithotripsy TBA continue supportive care Problems(with codes): (1) Flank pain (2) Urinary tract obstruction by kidney stone Plan discussed with: Patient, Other GRACIELA MCQUEEN APARTMENT MAINTENANCE MANAGER May 09, 2025 11:26
[2025-05-09] MEDS: DOCUSATE SOD 100 MG CAP PO PRN (16:52)
[2025-05-10] VITALS (12 sets, daily range): BP systolic 141–163; BP diastolic 72–87; PULSE 84–91; RESP 10–18; TEMP 98.1–99.2; O2SAT 96–100
--- NOTE | 2025-05-10 11:09 | DVH ---
INDICATION: EVALUATION FOR NEPHROSTOMY TUBE PLACEMENT TECHNIQUE: Multiple real-time sonographic images of the kidneys and bladder were obtained. COMPARISON: 05/08/2025 FINDINGS: The right kidney measures 11 cm in length, which is normal in size. There is normal echogen icity of the right kidney. No hydronephrosis. There is a left renal stone measuring 1.1 cm. The left kidney measures 12 cm in length, which is normal in size. There is normal echogenicity of th e left kidney. Trace hydronephrosis. There is a left renal stone measuring 1.1 cm. No large intraluminal masses are seen in the bladder. IMPRESSION: Left renal stone measuring 1.1 cm. Trace left hydronephrosis.
--- NOTE | 2025-05-10 12:33 | DVHPN2 ---
Subjective The patient seen and examined at bedside. Still have lot of wilda pain. Reviewed: Care Plan, H&P, Labs, Medications, Previous Orders, Radiology Changes from previous H/P or p: No Changes Musculoskeletal: other (Left flank pain) Objective Vitals Vital Signs Date Time Temp Pulse Resp B/P (MAP) Pulse Ox O2 Delivery O2 Flow Rate FiO2 05/10/25 09:52 98 Room Air 0.0 05/10/25 09:10 87 17 141/87 05/10/25 09:00 98.8 98.8 05/10/25 08:00 21 Intake/Output Intake and Output 05/10/25 07:00 Intake Total 2705 ml Balance 2705 ml Intake Oral 1825 ml IV Total 880 ml # Voids 8 General Appearance: Alert, Oriented X3, Cooperative, No acute distress HEENT: Atraumatic, PERRLA, EOMI, Mucous membr. moist/pink Neck: Supple Lungs: Clear to auscultation, Normal air movement Cardiovascular: Regular rate, Normal S1, Normal S2, No murmurs, Gallops, Rubs Abdomen: Normal bowel sounds, Soft, No tenderness Back: Flank Tenderness Neuro: Cranial nerves 3-12 NL Psych/Mental Status: Mental status NL Medications Current Medications Medications Dose Ordered Sig/Yolanda Route Start Time Stop Time Status Last Admin Dose Admin Ceftriaxone Sodium 50 ml @ 100 mls/hr DAILY@09 IV 05/08/25 10:00 05/10/25 09:02 100 MLS/HR Sodium Chloride 1,000 ml @ 120 mls/hr Q8H20M IV 05/08/25 10:00 05/10/25 05:41 120 MLS/HR Acetaminophen/ Hydrocodone Bitart 1 tab Q4HP PRN PO 05/08/25 10:00 05/10/25 12:12 1 TAB Ondansetron HCl 4 mg Q4HP PRN IV 05/08/25 10:00 05/10/25 05:40 4 MG Acetaminophen 650 mg Q6HP PRN PO 05/08/25 10:00 Morphine Sulfate 2 mg Q4HPRN PRN IV 05/08/25 10:00 05/10/25 09:10 2 MG Levothyroxine Sodium 100 mcg DAILY PO 05/09/25 10:00 05/09/25 10:08 100 MCG Pantoprazole Sodium 40 mg BID PO 05/08/25 22:00 05/09/25 22:41 40 MG Tamsulosin HCl 0.4 mg DAILY PO 05/09/25 10:00 05/09/25 10:08 0.4 MG Atorvastatin Calcium 40 mg HS PO 05/08/25 22:00 05/09/25 22:42 40 MG Pregabalin 50 mg BID PO 05/08/25 22:00 Hold Patient Own Medication 1 DAILY PRN PO 05/08/25 16:45 05/09/25 13:24 1 Docusate Sodium 100 mg BIDPRN PRN PO 05/09/25 16:30 05/09/25 16:52 100 MG Laboratory Results Laboratory Tests 05/09/25 05:12 Urinalysis Test 05/08/25 07:37 Urine Color Yellow (Yellow) Urine Clarity Turbid (Clear) H Urine pH 6.0 (5.0-9.0) Urine Specific [place] 1.025 (1.001-1.035) Urine Protein Trace (Negative) H Urine Ketones Negative (Negative) Urine Blood Negative /uL (Negative) Urine Nitrite Negative (Negative) Urine Bilirubin Negative (Negative) Urine Urobilinogen Normal mg/dL (Negative) Urine Leukocyte Esterase 1+ /uL (Negative) Urine RBC 2 /hpf (0 - 4) Urine Microscopic WBC 2 /HPF (0-5) Urine Squamous Epithelial Cells Few /hpf (<5) Urine Bacteria None seen /hpf (None Seen) Urine Glucose Normal mg/dL (Normal) Labs and/or images reviewed: Labs reviewed by me Assessment/Plan Assessment/Plan Intractable left flank pain likely due to left hydronephrosis with 8 mm calculus in the proximal left ureter Nonobstructive left intrarenal calculus Hepatic steatosis and hepatomegaly Leukocytosis likely due to UTI MAUDE likely due to calculus Obesity History of nephrolithiasis History of cholecystectomy History of hysterectomy Continue current management with IV antibiotic and IV pain medication Waiting for urologist to see the patient. Continue with zofran PRN for nausea/vomiting. Continue tamsulosin. Plan discussed with: Patient My Orders Orders - SANDY LITTLE MD Procedure Category Date Status Time Docusate Sodium PHA 05/09/25 In Process Capsule (Col[place] 16:30 Date of Service: May 09, 2025 Billing Provider: SANDY LITTLE MD Common Visit Codes: [id number] INP/OBS CARE(HIGH) SANDY LITTLE MD May 10, 2025 12:33
[2025-05-10] MEDS: IODIXANOL 320MG/ML 100ML BTL IV ONE (12:52)
[2025-05-10] MEDS: fentaNYL CITRATE 100 MCG/2 ML VL ONE ×2 (13:01→14:06)
[2025-05-10] MEDS: MIDAZOLAM HCL 2MG/2ML 2ml VIAL (1mg/ml) ONE ×2 (13:02→13:39)
[2025-05-10] MEDS: LIDOCAINE 2%HCL (LOCAL ANESTH.) INJ 20ML MDV ONE (13:02)
--- NOTE | 2025-05-10 15:28 | DVH ---
XY PERCUTANEOUS NEPHROSTOMY, HISTORY: NEPHROTUBE for obstructive uropathy with an 8 mm proximal left ureteral kidney stone and hyd ronephrosis. PROCEDURE: Informed consent was obtained. The patient was placed on the fluoroscopic table in a prone position and IV sedation administered. The left flank was prepped with chlorhexidine which was allow ed to dry and draped in the usual sterile fashion. Time out was performed. and the soft tissues infil trated with 1% lidocaine local anesthetic. Under ultrasound guidance, a 21 gauge Accu Stick needle wa s advanced into middle pole calyx, and a contrast nephrostogram performed. Over a mandril wire, exc hange was made to a non-vascular access set, through which was advanced an 0.035 wire. However the wi re perforated the renal pelvis/ proximal ureter at the level of the stone. The nephrostomy tube was u nable to be advanced into the renal pelvis. The patient body habitus was challenging. A glide wire norberto s navigated down into the bladder. A catheter placed into the bladder over the wire. Contrast injecti on confirms location of the bladder. Then, the tract was dilated to 10 Fr. An 8 Fr x 24 cm nephrouret eral stent was placed over the wire into the bladder. Contrast injection confirms positioning. The ca theter was secured in place and connected to gravity drainage. A sterile dressing was applied. No imm ediate complication was identified. DAP 650 FLUOROSCOPY TIME: 8.6 minutes. CONTRAST USED: 30 mL SEDATION: Dr. Jenny Cai was personally responsible for the administration of moderate sedation during the procedure performed, including the use of an independent trained observer who had no other duties during the procedure. The drugs utilized were IV fentanyl and versed (see nursing log for details). The total time of supervision by the attending physician was approximately 60 minutes. FINDINGS: Mild left hydronephrosis with an obstructive stone at the proximal left ureter. No contras t seen going down the ureter on initial injection. Contrast was seen communicating with renal veins f rom the calyces. Perforation of the renal pelvis/ proximal ureter at the level of the stone resulted in contrast extravasation into the retroperitoneum. Thus, an 8 fr x 24 cm nephroureteral stent was p laced with distal loop coiled in the bladder and proximal loop pigtailed within the renal pelvis. Con trast flows freely into the bladder. IMPRESSION: Placement of an 8 fr x 24 cm percutaneous nephroureteral stent due to obstructive uropathy from an ob structive proximal left ureteral kidney stone and perforation of the renal pelvis/ proximal ureter at the level of the stone.
--- NOTE | 2025-05-10 20:26 | DVHPN2 ---
Subjective The patient seen and examined at bedside. Waiting for nephrostomy tube place and also stent placement today. Reviewed: Care Plan, H&P, Labs, Medications, Previous Orders, Radiology Changes from previous H/P or p: No Changes Musculoskeletal: other (Left flank pain) Objective Vitals Vital Signs Date Time Temp Pulse Resp B/P (MAP) Pulse Ox O2 Delivery O2 Flow Rate FiO2 05/10/25 17:40 88 16 165/80 05/10/25 15:30 97 05/10/25 14:30 98.1 98.1 05/10/25 09:52 Room Air 0.0 05/10/25 08:00 21 Intake/Output Intake and Output 05/10/25 07:00 Intake Total 2705 ml Balance 2705 ml Intake Oral 1825 ml IV Total 880 ml # Voids 8 General Appearance: Alert, Oriented X3, Cooperative, No acute distress HEENT: Atraumatic, PERRLA, EOMI, Mucous membr. moist/pink Neck: Supple Lungs: Clear to auscultation, Normal air movement Cardiovascular: Regular rate, Normal S1, Normal S2, No murmurs, Gallops, Rubs Abdomen: Normal bowel sounds, Soft, No tenderness Back: Flank Tenderness Neuro: Cranial nerves 3-12 NL Psych/Mental Status: Mental status NL Medications Current Medications Medications Dose Ordered Sig/[place] Route Start Time Stop Time Status Last Admin Dose Admin Ceftriaxone Sodium 50 ml @ 100 mls/hr DAILY@09 IV 05/08/25 10:00 05/10/25 09:02 100 MLS/HR Sodium Chloride 1,000 ml @ 120 mls/hr Q8H20M IV 05/08/25 10:00 05/10/25 17:11 120 MLS/HR Acetaminophen/ Hydrocodone Bitart 1 tab Q4HP PRN PO 05/08/25 10:00 05/10/25 12:12 1 TAB Ondansetron HCl 4 mg Q4HP PRN IV 05/08/25 10:00 05/10/25 17:10 4 MG Acetaminophen 650 mg Q6HP PRN PO 05/08/25 10:00 Morphine Sulfate 2 mg Q4HPRN PRN IV 05/08/25 10:00 05/10/25 17:10 2 MG Levothyroxine Sodium 100 mcg DAILY PO 05/09/25 10:00 05/09/25 10:08 100 MCG Pantoprazole Sodium 40 mg BID PO 05/08/25 22:00 05/09/25 22:41 40 MG Tamsulosin HCl 0.4 mg DAILY PO 05/09/25 10:00 05/09/25 10:08 0.4 MG Atorvastatin Calcium 40 mg HS PO 05/08/25 22:00 05/09/25 22:42 40 MG Pregabalin 50 mg BID PO 05/08/25 22:00 Hold Patient Own Medication 1 DAILY PRN PO 05/08/25 16:45 05/09/25 13:24 1 Docusate Sodium 100 mg BIDPRN PRN PO 05/09/25 16:30 05/10/25 17:10 100 MG Laboratory Results Laboratory Tests 05/09/25 05:12 Urinalysis Test 05/08/25 07:37 Urine Color Yellow (Yellow) Urine Clarity Turbid (Clear) H Urine pH 6.0 (5.0-9.0) Urine Specific [place] 1.025 (1.001-1.035) Urine Protein Trace (Negative) H Urine Ketones Negative (Negative) Urine Blood Negative /uL (Negative) Urine Nitrite Negative (Negative) Urine Bilirubin Negative (Negative) Urine Urobilinogen Normal mg/dL (Negative) Urine Leukocyte Esterase 1+ /uL (Negative) Urine RBC 2 /hpf (0 - 4) Urine Microscopic WBC 2 /HPF (0-5) Urine Squamous Epithelial Cells Few /hpf (<5) Urine Bacteria None seen /hpf (None Seen) Urine Glucose Normal mg/dL (Normal) Labs and/or images reviewed: Labs reviewed by me Assessment/Plan Assessment/Plan Intractable left flank pain likely due to left hydronephrosis with 8 mm calculus in the proximal left ureter Nonobstructive left intrarenal calculus Hepatic steatosis and hepatomegaly Leukocytosis likely due to UTI MAUDE likely due to calculus Obesity History of nephrolithiasis History of cholecystectomy History of hysterectomy Continue current management with IV antibiotic and IV pain medication Appreciate urologist input. Nephrostomy tube and stent placement done. Continue with zofran PRN for nausea/vomiting. Continue tamsulosin. Discharge planning when clear by urologist. Plan discussed with: Patient Date of Service: May 10, 2025 Billing Provider: SANDY LITTLE MD Common Visit Codes: [id number] INP/OBS CARE(HIGH) SANDY LITTLE MD May 10, 2025 20:26
--- NOTE | 2025-05-10 21:26 | DVH ---
Date: 05/10/2025 08:26 PM Examination: XY KUB ABDOMEN SINGLE VIEW History: stent Comparison: None TECHNIQUE: Frontal views of the abdomen was obtained. FINDINGS: Bowel gas pattern is unremarkable. The lung bases are unremarkable. No acute osseous abnormality identified. IMPRESSION: 1. Nonobstructive bowel gas pattern. 2. Internal external Double-J left ureteral stent.
[2025-05-11] VITALS (9 sets, daily range): BP systolic 135–158; BP diastolic 70–92; PULSE 81–96; RESP 12–18; TEMP 97.4–99.3; O2SAT 95–100
--- NOTE | 2025-05-11 12:34 | DVHPN2 ---
Subjective The patient seen and examined at bedside. Status post left percutaneous nephrostomy ureteral stent placement. Waiting for lithotripsy today. Reviewed: Care Plan, H&P, Labs, Medications, Previous Orders, Radiology Changes from previous H/P or p: No Changes Musculoskeletal: other (Left flank pain) Objective Vitals Vital Signs Date Time Temp Pulse Resp B/P (MAP) Pulse Ox O2 Delivery O2 Flow Rate FiO2 05/11/25 08:41 80 18 136/82 05/11/25 08:41 98.1 96 98.1 05/11/25 08:00 Room Air* 0 21 Intake/Output Intake and Output 05/11/25 07:00 Intake Total 2050 ml Balance 2050 ml Intake Oral 1000 ml IV Total 1050 ml # Voids 7 General Appearance: Alert, Oriented X3, Cooperative, No acute distress HEENT: Atraumatic, PERRLA, EOMI, Mucous membr. moist/pink Neck: Supple Lungs: Clear to auscultation, Normal air movement Cardiovascular: Regular rate, Normal S1, Normal S2, No murmurs, Gallops, Rubs Abdomen: Normal bowel sounds, Soft, No tenderness Back: Flank Tenderness Neuro: Cranial nerves 3-12 NL Psych/Mental Status: Mental status NL Medications Current Medications Medications Dose Ordered Sig/Yolanda Route Start Time Stop Time Status Last Admin Dose Admin Ceftriaxone Sodium 50 ml @ 100 mls/hr DAILY@09 IV 05/08/25 10:00 05/11/25 08:45 100 MLS/HR Sodium Chloride 1,000 ml @ 120 mls/hr Q8H20M IV 05/08/25 10:00 05/11/25 05:08 120 MLS/HR Acetaminophen/ Hydrocodone Bitart 1 tab Q4HP PRN PO 05/08/25 10:00 05/11/25 04:26 1 TAB Ondansetron HCl 4 mg Q4HP PRN IV 05/08/25 10:00 05/11/25 08:54 4 MG Acetaminophen 650 mg Q6HP PRN PO 05/08/25 10:00 Morphine Sulfate 2 mg Q4HPRN PRN IV 05/08/25 10:00 05/11/25 08:41 2 MG Levothyroxine Sodium 100 mcg DAILY PO 05/09/25 10:00 05/09/25 10:08 100 MCG Pantoprazole Sodium 40 mg BID PO 05/08/25 22:00 05/10/25 21:29 40 MG Tamsulosin HCl 0.4 mg DAILY PO 05/09/25 10:00 05/09/25 10:08 0.4 MG Atorvastatin Calcium 40 mg HS PO 05/08/25 22:00 05/10/25 21:29 40 MG Pregabalin 50 mg BID PO 05/08/25 22:00 Hold Patient Own Medication 1 DAILY PRN PO 05/08/25 16:45 05/10/25 20:25 1 Docusate Sodium 100 mg BIDPRN PRN PO 05/09/25 16:30 05/10/25 17:10 100 MG Laboratory Results Laboratory Tests 05/09/25 05:12 Urinalysis Test 05/08/25 07:37 Urine Color Yellow (Yellow) Urine Clarity Turbid (Clear) H Urine pH 6.0 (5.0-9.0) Urine Specific [place] 1.025 (1.001-1.035) Urine Protein Trace (Negative) H Urine Ketones Negative (Negative) Urine Blood Negative /uL (Negative) Urine Nitrite Negative (Negative) Urine Bilirubin Negative (Negative) Urine Urobilinogen Normal mg/dL (Negative) Urine Leukocyte Esterase 1+ /uL (Negative) Urine RBC 2 /hpf (0 - 4) Urine Microscopic WBC 2 /HPF (0-5) Urine Squamous Epithelial Cells Few /hpf (<5) Urine Bacteria None seen /hpf (None Seen) Urine Glucose Normal mg/dL (Normal) Labs and/or images reviewed: Labs reviewed by me Assessment/Plan Assessment/Plan Intractable left flank pain likely due to left hydronephrosis with 8 mm calculus in the proximal left ureter status post left percutaneous nephrostomy ureteral stent placement Nonobstructive left intrarenal calculus Hepatic steatosis and hepatomegaly Leukocytosis likely due to UTI MAUDE likely due to calculus Obesity History of nephrolithiasis History of cholecystectomy History of hysterectomy Continue current management with IV antibiotic and IV pain medication Appreciate urologist input. Nephrostomy tube placement done. Waiting for lithotripsy to be done today. Continue with zofran PRN for nausea/vomiting. Continue tamsulosin. Discharge planning when clear by urologist. Plan discussed with: Patient Date of Service: May 11, 2025 Billing Provider: SANDY LITTLE MD Common Visit Codes: [id number] INP/OBS CARE(HIGH) SANDY LITTLE MD May 11, 2025 12:34
[2025-05-11] MEDS ORDERED: SUCCINYLCHOLINE CHLORIDE 20 MG/ML 10ML VIAL IV ONE (13:15)
[2025-05-11] MEDS ORDERED: fentaNYL CITRATE 100 MCG/2 ML VL ONE ×2 (13:21→13:42)
[2025-05-11] MEDS ORDERED: PROPOFOL 10 MG/ML 20 ML IV ONE (13:21)
[2025-05-11] MEDS ORDERED: IOHEXOL 300 MG/ML 100ML BOTTLE IJ ONE (13:40)
[2025-05-11] MEDS ORDERED: KETAMINE 50mg/ML 1ml syringe ONE (13:52)
[2025-05-11] MEDS ORDERED: MIDAZOLAM HCL 2MG/2ML 2ml VIAL (1mg/ml) ONE (13:56)
[2025-05-11] MEDS ORDERED: HYDROmorphone HCL 2 MG/ML VL/or syr ONE (14:16)
[2025-05-11] MEDS ORDERED: HYDROmorphone HCL 2 MG/ML VL/or syr IV PRN (14:45)
[2025-05-11] MEDS ORDERED: ONDANSETRON HCL 4 MG/2 ML VIAL IV ONE (14:45)
--- NOTE | 2025-05-11 14:46 | DVHNC2 ---
Procedure - OPERATIVE REPORT Pre-op. Diagnosis: left lower pole renal calculus, 4 mm left proximal ureteral calculus 9 mm left hydronephrosis, status post left percutaneous nephrosto ureteral stent placement Post-op. Diagnosis: Same as pre-op diagnosis Operation: Extracorporeal Shockwave Lithotripsy - left nephrolithiasis, 4 mm extracorporeal shockwave lithotripsy - left proximal ureteral calculus, 9 mm Anesthesia: General Indications: Patient was found to have symptomatic Urolithiasis. Patient is here to undergo ESWL therapy. Informed Consent: The procedure was explained to the patient. It's risks include but not limited to infection, bleeding, and damage to the kidney. Patient fully understood and signed the consent. Other options such as watchful waiting, Ureteroscopy, Percutaneous surgery and open surgery were also discussed. Details of Procedure: Under satisfactory anesthesia, the patient was positioned on the lithotripsy table. Using fluoroscopy the stone was localized. Starting at low energy levels, shockwave treatment was commenced. The energy level was gradually increased and stone was fragmented. Once the treatment was completed, patient was then taken off the lithotripsy table and sent to recovery room in stable condition. Specimens: None Complications: None Findings: Stone Laterality: Left Stone Location: renal (4 mm) and proximal ureteral stone (9 mm) Shocks Delivered: 500/2500 Max Power settin/ 7 Fragmentation Quality: Well Notes: The left percutaneous nephroureteral stent placed by Interventional Radiology Service appears to be a 7-8 F Caliber. Despite adequate fragmentation of the stones, stone passage may be impeded by the large caliber nephroureteral stent. Patient will be scheduled to undergo left ureteroscopic laser lithotripsy was renal evacuation and stent removal under anesthesia in two weeks AUSTEN PHELAN MD May 11, 2025 14:46
[2025-05-12 01:00] VITALS: BP 105/63; PULSE 67; RESP 16; TEMP 97.9; O2SAT 97
[2025-05-12 05:00] VITALS: BP 107/55; PULSE 74; RESP 14; TEMP 98.3; O2SAT 97
[2025-05-12 08:00] VITALS: PULSE 76; RESP 16; O2SAT 98
[2025-05-12 09:00] VITALS: BP 106/56; PULSE 80; RESP 18; TEMP 98.2; O2SAT 97
[2025-05-12 13:00] VITALS: BP 117/57; PULSE 67; RESP 18; TEMP 97.6; O2SAT 97
[2025-05-12] MEDS ORDERED: CEPH250C PO (13:49)
[2025-05-12] MEDS ORDERED: HYDR-4902 PO (13:49)
--- NOTE | 2025-05-12 13:55 | DVHDS2 ---
Discharge Summary Date of Admission May 08, 2025 at 09:53 Date of Discharge: May 12, 2025 Admitting Diagnosis Intractable left flank pain likely due to left hydronephrosis with 8 mm calculus in the proximal left ureter Nonobstructive left intrarenal calculus Hepatic steatosis and hepatomegaly Leukocytosis likely due to UTI MAUDE likely due to calculus Obesity History of nephrolithiasis History of cholecystectomy History of hysterectomy Labs/Diagnostic Data: Laboratory Results Test 05/09/25 05:12 05/08/25 08:13 05/08/25 07:37 White Blood Count 10.0 10^3/uL (4.4-10.8) Red Blood Count 4.43 10^6/uL (4.0-5.20) Hemoglobin 13.3 g/dL (12.2-16.2) Hematocrit 38.4 % (36.0-46.0) Mean Corpuscular Volume 86.6 fL (80.0-100.0) Mean Corpuscular Hemoglobin 30.0 pg (28.0-32.0) Mean Corpuscular Hemoglobin Concent 34.6 g/dL (32.0-36.0) Red Cell Distribution Width 14.0 % (11.8-14.3) Platelet Count 179 10^3/uL (140-450) Mean Platelet Volume 8.2 fL (6.9-10.8) Neutrophils (%) (Auto) 72.8 % (37.0-80.0) Lymphocytes (%) (Auto) 17.6 % (10.0-50.0) Monocytes (%) (Auto) 8.1 % (0.0-12.0) Eosinophils (%) (Auto) 1.0 % (0.0-7.0) Basophils (%) (Auto) 0.5 % (0.0-2.0) Neutrophils # (Auto) 7.3 10 ^3/uL (1.6-8.6) Lymphocytes # (Auto) 1.8 10 ^3/uL (0.4-5.4) Monocytes # (Auto) 0.8 10 ^3/uL (0-1.3) Eosinophils # (Auto) 0.1 10 ^3/uL (0-0.8) Basophils # (Auto) 0.1 10 ^3/uL (0-0.2) Nucleated Red Blood Cells 0.1 % Sodium Level 138 mmol/L (136-145) Potassium Level 3.9 mmol/L (3.5-5.1) Chloride Level 104 mmol/L (98-107) Carbon Dioxide Level 26 mmol/L (20-31) Anion Gap 8 (5-15) Blood Urea Nitrogen 13 mg/dL (9-23) Creatinine 1.38 mg/dL (0.550-1.02) Glomerular Filtration Rate Calc 44 mL/min (>90) BUN/Creatinine Ratio 9.4 (10.0-20.0) Serum Glucose 103 mg/dL (74-106) Calcium Level 9.3 mg/dL (8.7-10.4) Total Bilirubin 0.8 mg/dL (0.2-1.0) Aspartate Amino Transferase (AST) 17 U/L (13-40) Alanine Aminotransferase (ALT) 12 U/L (7-40) Alkaline Phosphatase 69 U/L (46-116) Total Protein 6.8 g/dL (5.7-8.2) Albumin 3.9 g/dL (3.2-4.8) Prothrombin Time 11.4 sec (9.3-11.8) Prothrombin Time INR 1.08 (0.9-1.15) Urine Color Yellow (Yellow) Urine Clarity Turbid (Clear) Urine pH 6.0 (5.0-9.0) Urine Specific [place] 1.025 (1.001-1.035) Urine Protein Trace (Negative) Urine Ketones Negative (Negative) Urine Blood Negative /uL (Negative) Urine Nitrite Negative (Negative) Urine Bilirubin Negative (Negative) Urine Urobilinogen Normal mg/dL (Negative) Urine Leukocyte Esterase 1+ /uL (Negative) Urine RBC 2 /hpf (0 - 4) Urine Microscopic WBC 2 /HPF (0-5) Urine Squamous Epithelial Cells Few /hpf (<5) Urine Bacteria None seen /hpf (None Seen) Urine Glucose Normal mg/dL (Normal) Other Laboratory Tests 05/09/25 05:12 Brief Hx & Hospital Course: . The patient is a 59 years old female with past medical history of nephrolithiasis, cholecystectomy, hysterectomy come to emergency department because two weeks of hematuria. The patient had 10/10 pain and constant. The patient was admitted. The patient was found to have nephrolithiasis:left lower pole renal calculus, 4 mm. Left proximal ureteral calculus 9 mm, left hydronephrosis subsequently the patient has left percutaneous nephrosto ureteral stent placement . The patient also had lithotripsy of these two renal calculus. Today the patient doing well. Urine become clear. I am going to discharge her home. Advised her to follow up with Dr. Hearn, urologist per schedule for post op follow up. Follow up with primary care physician. Activity as tolerated. Diet per home diet. Physical exam: HEENT: Normocephalic atraumatic pupils equal react to light and accommodation. Extraocular muscles intact, conjunctiva pink, oropharynx moist, no thrush, no exudate. Lymphatic: No lymphadenopathy Cardiovascular exam: S1, S2 was heard. No murmurs, rubs, gallops Lung: Clear on auscultation bilaterally, no wheeze, rale, rhonchi. GI: Abdominal soft, nondistended, nontenderness, positive bowel sounds. Extremity: No crepitus, cyanosis, edema. Pedal pulses present bilateral. Full range of motion. Skin: Normal turgor, no rash. Psych: Alert, oriented x3. Neurology: No focal deficits, cranial nerve II to XII grossly intact. This medical document was created using an electronic medical record system with [employer] direct computerized dictation system. Although this document has been carefully reviewed, there may still be some phonetic and typographical errors. These areas are purely typographical due to imperfections of the software programs, and do not reflect any compromise in the patient's medical care. Condition at Discharge: Stable Final Diagnosis/Problems List Intractable left flank pain likely due to left hydronephrosis with 8 mm calculus in the proximal left ureter status post left percutaneous nephrostomy ureteral stent placement Nonobstructive left intrarenal calculus Hepatic steatosis and hepatomegaly Leukocytosis likely due to UTI MAUDE likely due to calculus Obesity History of nephrolithiasis History of cholecystectomy History of hysterectomy Discharge Disposition: Home Discharge Instruct/Medications Diet: Regular Activity: No Restrictions, As Tolerated Follow Up/Referral: pcp 1-[address] Hearn urologist per schedule Medications: see med list Scheduled Atorvastatin Calcium (Atorvastatin Calcium), 1 TAB PO DAILY, (Reported) Cephalexin (Keflex Capsule), 2 CAP PO BID Levothyroxine Sodium (Levothyroxine Sodium), 1 TAB PO DAILY, (Reported) Pantoprazole Sodium Sesquihydr (Pantoprazole Sodium), 1 TAB PO BID, (Reported) Scheduled PRN Hydrocodone-Acetaminophen (Hydrocodone Bitartrate/AC 5-325 mg), 1 TAB PO Q6HPRN PRN Miscellaneous Medications Pregabalin (Pregabalin), CAP PO, (Reported) Ropinirole Hydrochloride (Ropinirole Hydrochloride), 1 TAB PO, (Reported) Tamsulosin Hcl (Tamsulosin Hcl), CAP PO, (Reported) Discharge Statement: "Patient was advised to return to the ER or call 911 if any headaches, dizziness, shortness of breath, chest pain, abdominal pain, bleeding, fevers, or worsening of medical condition. Patient was counseled about treatment plan, medications, possible side effects, patientverbalized understanding. All questions were answered to the best of my ability. This discharge took greater then 30 minutes in planning, reviewing documentation, counseling the patient, and discussing with other team members." ASSESSMENT ASSESSMENT Assessment nephrolithiasis Date of Service: May 12, 2025 Billing Provider: SANDY LITTLE MD Common Visit Codes: [id number] DISCH DAY >30min SANDY LITTLE MD May 12, 2025 13:55
[2025-05-12 15:35] VITALS: BP 106/56; PULSE 80; RESP 18; TEMP 36.4; O2SAT 97
== END 2025-05-12 16:15 | disposition home or self-care (01) | DRG 654 ==
LOC: ER 07:26 → OVERFLOW 09:53 → WEST WING 22:22
PROVIDERS: ADMIT Internal Medicine; ATTEND Internal Medicine
PROC: 0T7B3DZ Dilation of Bladder with Intraluminal Device, Percutaneous Approach (ICD-10-PCS; principal; 2025-05-10)
PROC: BT121ZZ Fluoroscopy of Left Kidney using Low Osmolar Contrast (ICD-10-PCS; 2025-05-10)
PROC: 0TF4XZZ Fragmentation in Left Kidney Pelvis, External Approach (ICD-10-PCS; 2025-05-11)
PROC: 0TF7XZZ Fragmentation in Left Ureter, External Approach (ICD-10-PCS; 2025-05-11)
DX: N13.6 Pyonephrosis (principal); N20.2 Calculus of kidney with calculus of ureter; N17.9 Acute kidney failure, unspecified; E66.9 Obesity, unspecified; K76.0 Fatty (change of) liver, not elsewhere classified; R16.0 Hepatomegaly, not elsewhere classified; Z88.2 Allergy status to sulfonamides; Z90.710 Acquired absence of both cervix and uterus; Z90.49 Acquired absence of other specified parts of digestive tract; Z80.3 Family history of malignant neoplasm of breast; Z79.899 Other long term (current) drug therapy
CPT/HCPCS: 36415; 50435; 50694; 74018; 74176; 74425; 76775; 76942; 80053; 81001; 85025; 85610; 86850; 86900; 86901; 96365; 96375; 99152; A4344; G0378; J0330; J2250; J2405; J2704; Q9967

== ENCOUNTER → 2025-05-25 | Day surgery (SDC) | payer BC ==
[2025-05-20 11:54] LABS: Hematocrit 39.5 % (36.0-46.0); Hemoglobin 13.4 g/dL (12.2-16.2); Mean Corpuscular Hemoglobin 30.0 pg (28.0-32.0); Mean Corpuscular Volume 88.4 fL (80.0-100.0); Nucleated Red Blood Cells % 0.1 %
[2025-05-20 12:00] LABS: Urine Protein, UAD 1+ (Negative)
[2025-05-20 12:24] LABS: INR 1.03 (0.9-1.15); Partial Thromboplastin Time 25.4 SEC (24.5-34.5); Prothrombin Time 10.9 sec (9.3-11.8)
[2025-05-20 12:48] LABS: Alanine Aminotransferase 18 U/L (7-40); Albumin 4.8 g/dL (3.2-4.8); Alkaline Phosphatase 78 U/L (46-116); Anion Gap 11 (5-15); BUN/Creatinine Ratio 10.7 (10.0-20.0); Bilirubin, Total 0.5 mg/dL (0.2-1.0); Blood Urea Nitrogen 11 mg/dL (9-23); Calcium 10.2 mg/dL (8.7-10.4); Carbon Dioxide 27 mmol/L (20-31); Chloride 103 mmol/L (98-107); Glucose 100 mg/dL (74-106); Potassium 4.1 mmol/L (3.5-5.1); Sodium 141 mmol/L (136-145); Total Protein 7.6 g/dL (5.7-8.2)
[~2025-05-25] VITALS: Ht 162.6 cm; Wt 83.9 kg
[~2025-05-25] MED LIST: ATOR40TA52 PO; HYDR-4902 PO; HYDROmorphone HCL 2 MG/ML VL/or syr IV PRN; LEVO100T8 PO; MIDAZOLAM HCL 2MG/2ML 2ml VIAL (1mg/ml) IV PRN; MIDAZOLAM HCL 2MG/2ML 2ml VIAL (1mg/ml) ONE; MORPHINE SULFATE 4 MG/ML SYR/VIAL IV PRN; ONDANSETRON HCL 4 MG/2 ML VIAL IV ONE; ONDANSETRON HCL 4 MG/2 ML VIAL ONE; PANT40T PO; PREG50CA80 PO; PROPOFOL 10 MG/ML 20 ML IV ONE; ROPI2TAB47 PO; TAMS0.4C39 PO; fentaNYL CITRATE 100 MCG/2 ML VL ONE; hydrALAZINE HCL 20 MG/ML VL IV PRN
[2025-05-25 07:32] VITALS: TEMP 97.3
[2025-05-25] MEDS: CIPROFLOXACIN 400MG/200ML 200 ML IV ONE (09:37)
[2025-05-25 11:15] VITALS: O2SAT 100
--- NOTE | 2025-05-25 11:50 | DVHNC2 ---
Procedure - OPERATIVE REPORT Pre-op. Diagnosis: Ureteral stone - left proximal 8 mm impacted stone Left nephroureterostomy tube, in situ Left renal stone, 4 mm lower pole Post-op. Diagnosis: Same as pre-op diagnosis Operation: Right ureteroscopy/pyeloscopy, laser lithotripsy Cystoscopy with right ureteral stent placement Right retrograde pyelogram Anesthesia: General Indications: Patient presented with impacted left proximal 8 mm ureteral stone and left percutaneous nephroureterostomy in-situ. The indications, risks, complications, alternatives and benefits were discussed. All questions were encouraged and answered. Patient is aware of risks/complications including but not limited to infection, bleeding, persistent pain, possible ureteral injury/ureteral stricture requiring additional surgical management, urethral injury, urethral stricture and meatal stenosis. Details of Procedure: After obtaining the consent, patient was taken to OR suite and underwent general anesthesia. Preop antibiotic was given. Timeout was performed and deemed to be correct. With the patient positioned in the lithotomy, the area of the genitalia prepped and draped in usual sterile fashion. the left nephr oureterostomy tube was removed under fluoroscopic guidance. 22 F Cystoscope was used to access the urethra and bladder. A sensor tip guide wire was advanced through the scope into the Left ureter all the way to the collecting system under fluoroscopic control. Then I assembled semi-rigid ureteroscopy and placed it into the bladder. The ureteroscopy was navigated between into the proximal left ureter. The stone was visualized and noted to be impacted in the lateral aspect of the ureteral wall. Now using a 200 micron laser fiber the stone was blasted into small fragments and the lateral wall adhesions were cut with laser energy. Now using a basket, the fragments were removed and passed to be sent to pathology. Then I performed retrograde pyelogram through the scope to visualize the collecting system. Left lower pole 4 mm filling defect suggested the left lower pole stone. Ureteroscope was removed. At this point, the cystoscope was advanced over the wire into the bladder. Now a [address] ureteral stent was advanced under direct visualization through the left ureteral orifice into the kidney. The patient was placed in supine position in the OR table. Anesthesia was reversed, patient was extubated and transferred awake and in stable conditions to recovery room. Specimens: Left ureteral stone Complications: None Findings: EBL: minimal Notes: 6 [address] x [address] ureteral stent - left AUSTEN PHELAN MD May 25, 2025 11:50
--- NOTE | 2025-05-25 11:52 | DVHDS2 ---
New Physician D'charge PN Admitting Diagnosis Admitting Diagnosis Left ureteral calculus Left percutaneous nephroureteral stent in Situ Left renal calculus Discharge Diagnosis Same Operations or Procedures Left nephrostomy tube removal Left ureteroscope with laser lithotripsy and left ureteral stent placement Reason(s) For Hospitalization Surgery Treatment Plan Discharge Condition of Discharge Good Disposition Home Discharge Instructions Diet: Regular Activity: Light activity Activity comment: As tolerated Medications: Given Follow Up Care Follow Up/Referral: Two weeks with [facility] Discharge Statement: "Patient was advised to return to the ER or call 911 if any headaches, dizziness, shortness of breath, chest pain, abdominal pain, bleeding, fevers, or worsening of medical condition. Patient was counseled about treatment plan, medications, possible side effects, patientverbalized understanding. All questions were answered to the best of my ability. This discharge took greater then 30 minutes in planning, reviewing documentation, counseling the patient, and discussing with other team members." AUSTEN PHELAN MD May 25, 2025 11:52
--- NOTE | 2025-05-25 11:52 | DVH ---
FLUOROSCOPY TIME: 12.8 seconds TECHNIQUE: Intraoperative radiographs of the abdomen were obtained. COMPARISON: XY KUB ABDOMEN SINGLE VIEW on DOS: 05/10/25, XY PERCUTANEOUS NEPHROSTOMY on DOS: 05/10/25, US KIDNEY on DOS: 05/10/25, CT CT AB PEL WO CON-NO ORAL OR IV on DOS: 05/08/25 FINDINGS: Refer to intraoperative report for further evaluation. IMPRESSION: Refer to intraoperative report for further evaluation.
[2025-05-25 12:00] VITALS: BP 134/79; PULSE 94; RESP 14; O2SAT 98
== END | disposition home or self-care (01) ==
LOC: SUR 07:15
PROVIDERS: ATTEND Urology
DX: N20.1 Calculus of ureter (principal); I10 Essential (primary) hypertension; E03.9 Hypothyroidism, unspecified; G47.33 Obstructive sleep apnea (adult) (pediatric); K76.0 Fatty (change of) liver, not elsewhere classified; K21.9 Gastro-esophageal reflux disease without esophagitis; E66.9 Obesity, unspecified; Z68.31 Body mass index [BMI] 31.0-31.9, adult; Z96.0 Presence of urogenital implants; Z90.49 Acquired absence of other specified parts of digestive tract; Z98.890 Other specified postprocedural states; Z88.2 Allergy status to sulfonamides
CPT/HCPCS: 36415; 50389; 52356; 74018; 74420; 80053; 81001; 82360; 85025; 85610; 85730; 87086; 87088; 87186; 88300; J0744; J1100; J2250; J2405; J2704; J3010; 76000